=== PATIENT | male | born 1945 | race Caucasian/White ===

== ENCOUNTER 2020-06-03 16:22 | Emergency (ER) | payer MEDICARE, SELFPAY ==
[2020-06-03 16:45] VITALS: BP 118/79; PULSE 67; RESP 14; TEMP 36.2; O2SAT 97; BMI 28.8
--- NOTE | 2020-06-03 17:23 | HMH.EDUTC ---
[facility] [place] Clinical Impression: Exposure to COVID-19 virus Disposition: Home, Self-Care Condition on Discharge: Good Instructions: Preventing the Spread of Coronavirus Discharge Instructions Additional Instructions: Drink plenty of fluids. Take tylenol for pain or fever. Return if you begin to have difficulty breathing. Follow up with your regular doctor. GO TO THE ER FOR ANY WORSENING SYMPTOMS Referrals: Sandra Auguste [Primary Care Provider] - Time of Disposition: 17:25 Medical Decision Making - Medical Records Medical records reviewed: No: I reviewed the patient's medical records. - Zachery Inquiry Pt receiving controlled substance: No Vital Signs: 06/03/20 16:45 06/03/20 17:26 Temperature 97.1 F L 97.1 F L Temperature Source Oral Pulse Rate 67 Pulse Rate [Right Brachial] 67 Respiratory Rate 14 14 Blood Pressure 118/79 Blood Pressure [Right Arm] 118/79 Blood Pressure Mean [Right Arm] 92 Blood Pressure Source [Right Arm] Automatic Cuff Blood Pressure Position [Right Arm] Sitting 02 Sat by Pulse Oximetry 97 Oxygen Delivery Method Room Air [facility] [place] - General Stated complaint: covid test Time Seen by Provider: 06/03/20 17:23 Mode of Arrival: Ambulatory Source of Information: Patient Limitations: No Limitations Description of Symptoms (Recalled from Triage Doc. by RN): COVID TEST D/T EXPOSURE. DENIES SYMPTOMS HEENT Symptoms (Recalled from RN notes): No Resp Symptoms (Recalled from RN notes): No Skin Symptoms (Recalled from RN notes): No MS Symptoms (Recalled from RN notes): No Functional Status (Recalled from RN notes): WNL - History of Present Illness Provider Complaint: He is here to have a covid test. He was exposed to covid 3 days ago. He denies any symptoms so far. - Related Data Previous Rx's Medication Instructions Recorded Penicillin V Potassium 500 mg PO Q6H #28 tablet 04/23/18 Allergies Allergy/AdvReac Type Severity Reaction Status Date / Time No Known Allergies Allergy Verified 04/23/18 20:30 - Worker's Comp Is this a Worker's Comp case?: No [facility] History - Hepatitis A Screen Drug use history?: No High risk sexual behaviors?: No History of sexually transmitted infection?: No Currently employed?: No Childcare worker?: No Do you have indoor plumbing?: Yes Do you have electricity?: Yes Attestation statement:: This patient has been screened for Hepatitis A risk factors. I have reviewed the patient's past medical history: Yes - Social History Alcohol Intake: never ROS Obtained: Yes All systems reviewed & no additional complaints - Constitutional Constitutional: Reports system reviewed and no additional complaints, except as docu - Eyes Eyes: Reports system reviewed and no additional complaints, except as docu - ENT Ears, Nose, Mouth, and Throat: Reports system reviewed and no additional complaints, except as docu - Cardiovascular Cardiovascular: Reports acrocyanosis - Respiratory Respiratory: Reports system reviewed and no additional complaints, except as docu Physical Exam - General General appearance: alert, in no apparent distress - Head Head exam: atraumatic, normocephalic, normal inspection - Eye Eye exam: Present: normal appearance, PERRL, EOMI - ENT ENT exam: Present: normal exam, normal oropharynx, mucous membranes moist, TM's normal bilaterally, normal external ear exam - Neck Neck exam: Present: normal inspection, full ROM, trachea midline. Absent: meningismus, lymphadenopathy - Chest Chest inspection: Present: normal inspection, symmetric chest wall rise. Absent: tenderness - Respiratory Respiratory exam: Present: normal lung sounds bilaterally. Absent: respiratory distress - Cardiovascular Cardiovascular exam: Present: regular rate, normal rhythm. Absent: JVD - Abdominal Exam Abdominal exam: Present: soft, normal bowel sounds. Absent: distention, tenderness, guarding
[2020-06-03 17:26] VITALS: BP 118/79; PULSE 67; RESP 14; TEMP 36.2; O2SAT 97
--- NOTE | 2020-06-04 09:17 | PC.NURSE ---
patient POA notified of positive covid test
== END 2020-06-03 17:29 | disposition home or self-care (01) ==
PROVIDERS: Emergency Provider Nurse Practitioner Family; PCP Family Medicine
DX: U07.1 COVID-19 (principal)
CPT/HCPCS: G0463; 99202; U0003

== ENCOUNTER 2024-03-19 06:43 | Outpatient (CLI) | payer MEDICARE, SELFPAY ==
--- NOTE | 2024-03-19 06:47 | CT_ITS ---
FINAL REPORT TECHNIQUE: Thin section axial images were obtained from the lung apices through the upper abdomen without contrast. This study was performed with techniques to keep radiation doses as low as reasonably achievable (ALARA). Individualized dose reduction techniques using automated exposure control or adjustment of mA and/or kV according to the patient's size were employed. CLINICAL HISTORY: DYSPNEA FINDINGS: There is either a large right thyroid nodule or lymphadenopathy adjacent to the right thyroid measuring 3.7 cm. There is no mediastinal, hilar, or axillary lymphadenopathy. The heart is mildly enlarged. No pleural or pericardial effusion. Note is made of granulomatous disease. Limited images of the upper abdomen reveal a gallstone. There is a small hypodense lesion in the liver favored to represent a cyst. There is no acute osseous abnormality. IMPRESSION: Probable large right thyroid nodule versus lymphadenopathy in the lower neck. Consider ultrasound or CT with contrast. No acute intrathoracic abnormality. Reviewed, Interpreted and Dictated by Cristy Wick MD Transcribed by Milana Dobbs Authenticated and . [facility]
== END 2024-03-19 23:59 | disposition home or self-care (01) ==
LOC: RAD 06:45
PROVIDERS: PCP Nurse Practitioner Family; Visit Provider Nurse Practitioner Family
DX: R06.00 Dyspnea, unspecified (principal)
CPT/HCPCS: 71250